=== PATIENT | male | born 1995 | race Caucasian/White ===

== ENCOUNTER 2020-12-05 13:19 | Emergency (ER) | payer OTHER ==
[~2020-12-05] VITALS: Ht 190.5 cm; Wt 83.9 kg
[2020-12-05] MEDS ORDERED: INTESTINEX680 M1 PO (16:51)
[2020-12-05] MEDS ORDERED: AMOX-CLAV 875-1 EAC1 PO (16:51)
[2020-12-05] MEDS ORDERED: IBU600 MG PO (16:51)
[2020-12-05] MEDS ORDERED: ULTRAM50 MG PO (16:51)
[2020-12-05] MEDS ORDERED: SALINE NASAL SP88 ML (16:53)
== END 2020-12-05 17:01 ==
LOC: ER 13:19
DX: S61.412A Laceration without foreign body of left hand, initial encounter (principal); W31.2XXA Contact with powered woodworking and forming machines, initial encounter; Y93.89 Activity, other specified; Y92.018 Other place in single-family (private) house as the place of occurrence of the external cause; Y99.8 Other external cause status